=== PATIENT | male | born 1995 | race Caucasian/White ===

== ENCOUNTER 2019-05-27 22:50 | Emergency (ER) | payer OTHER ==
[2019-05-27 23:29] LABS: ABS Eosinophils 0.1 10^3/ul (0-0.6); ABS Lymphocytes 1.3 10^3/ul (1.0-4.8); ABS Monocytes 0.6 10^3/ul (0-0.8); ABS Neutrophils 10.7 10^3/ul (1.5-7.7); Eosinophil % 0.5 %; Hematocrit 47 % (42-52); Hemoglobin 15.9 g/dL (14.0-18.0); Mean Corpuscular HGB Conc 34 g/dL (31-36); Mean Corpuscular Hemoglobin 28 pg (27-31); Mean Corpuscular Volume 83 fL (80-94); Mean Platelet Volume 6.5 fL (7.4-10.4); Nucleated Red Blood Cells % 0.1; Platelet Count 203 10^3/uL (150-450); Red Cell Distribution Width 13 % (10-15); White Blood Count 12.7 10^3/uL (3.5-10.8)
[2019-05-27 23:47] LABS: Albumin 4.9 g/dL (3.2-5.2); BUN/Creatinine Ratio 12.6 (8-20); C Reactive Protein 14.1 mg/L (<8.01); Calcium 9.6 mg/dL (8.6-10.3); EGFR Non-African American 99.1 (>60); Globulin 2.5 g/dL (2-4); Potassium 3.9 mmol/L (3.5-5.0); Total Protein 7.4 g/dL (6.4-8.9)
[2019-05-28] MEDS ORDERED: Ondansetron INJ* 2 MG/ML VIAL IV ONE (00:09)
[2019-05-28] MEDS ORDERED: NS 0.9% 1000 ML** 1,000 ML IV ONE (00:09)
--- NOTE | 2019-05-28 00:11 | ED ---
GI/ HPI - HPI Summary HPI Summary: 23 yo male presents with cough and vomiting. He tells me that for the last 2 weeks he has had a dry cough. This morning he woke up with lower abdominal pain , fever, and nausea. He tried to eat, but vomited multiple times. Took tylenol and went to work. The whole day he has been nausea with mild LLQ pain and occasional RLQ pain. Upon leaving work this evening around 0, he vomited again - prompting his visit to the ED. Denies sinus symptoms, sore throat, SOB, chest pain, diarrhea, dysuria. - History of Current Complaint Chief Complaint: EDNauseaVomitDiarrh Time Seen by Provider: 05/28/19 00:08 Stated Complaint: VOMITING, COUGH PER PT Hx Obtained From: Patient Timing: Constant Severity: Mild Current Severity: Mild Pain Intensity: 4 - Allergy/Home Medications Allergies/Adverse Reactions: Allergies Allergy/AdvReac Type Severity Reaction Status Date / Time No Known Allergies Allergy Verified 05/27/19 22:58 PMH/Surg Hx/FS Hx/Imm Hx Endocrine/Hematology History: Denies: Hx Blood Disorders, Hx Diabetes Cardiovascular History: Denies: Hx Cardiac Arrest Respiratory History: Reports: Hx Asthma Denies: Hx Chronic Obstructive Pulmonary Disease (COPD) Neurological History: Denies: Hx CVA, Hx Headaches Psychiatric History: Denies: Hx Depression - Surgical History Surgical History: None - Immunization History Immunizations Up to Date: Yes Infectious Disease History: No Infectious Disease History: Denies: Traveled Outside the [place] in Last 30 Days - Family History Known Family History: Positive: None - Social History Occupation: Employed Full-time Lives: With Family Alcohol Use: Occasionally Substance Use Type: Reports: None Smoking Status (MU): Never Smoked Tobacco Review of Systems Positive: Fever Eyes: Negative ENT: Negative Cardiovascular: Negative Positive: Cough Positive: Abdominal Pain, Vomiting, Nausea Genitourinary: Negative Musculoskeletal: Negative Skin: Negative Neurological: Negative Psychological: Normal All Other Systems Reviewed And Are Negative: No Physical Exam - Summary Physical Exam Summary: GENERAL: NAD. WDWN. No pain distress. SKIN: No rashes, sores, or open wounds. HEENT: Head: AT/NC Eyes: PERRLA. EOM intact. Conjunctiva clear without inflammation or discharge. Ears: Hearing grossly normal. TMs intact, no bulging, erythema, or edema. Nose: Nasal mucosa pink and moist. NTTP maxillary and frontal sinus. Throat: Posterior oropharynx without exudates, erythema, or tonsillar enlargement. Uvula midline. NECK: Supple. Nontender. No lymphadenopathy. CHEST: CTAB. No r/r/w. No accessory muscle use. Breathing comfortably and in no distress. CV: RRR. Pulses intact. Brisk cap refill. ABDOMEN: Soft. Mild TTP LLQ and RLQ. No distention or guarding. No CVA tenderness. Bowel sounds present. Negative psoas and obturator sign. NEURO: Alert. PSYCH: Age appropriate behavior. Triage Information Reviewed: Yes Vital Signs On Initial Exam: Initial Vitals Temp Pulse Resp BP Pulse Ox 97.9 F 87 16 150/88 95 05/27/19 22:55 05/27/19 22:55 05/27/19 22:55 05/27/19 22:55 05/27/19 22:55 Vital Signs Reviewed: Yes Procedures - Sedation Patient Received Moderate/Deep Sedation with Procedure: No Diagnostics - Vital Signs Vital Signs Temp Pulse Resp BP Pulse Ox 05/27/19 22:55 97.9 F 87 16 150/88 95 - Laboratory Lab Results: Lab Results 05/27/19 05/27/19 05/27/19 Range/Units 23:23 23:23 23:23 WBC 12.7 H (3.5-10.8) 10^3/uL RBC 5.60 H (4.18-5.48) 10^6 /uL Hgb 15.9 (14.0-18.0) g/dL Hct 47 (42-52) % MCV 83 (80-94) fL MCH 28 (27-31) pg MCHC 34 (31-36) g/dL RDW 13 (10-15) % Plt Count 203 (150-450) 10^3/uL MPV 6.5 L (7.4-10.4) fL Neut % (Auto) 84.8 % Lymph % (Auto) 10.0 % Converse % (Auto) 4.4 % Eos % (Auto) 0.5 % Baso % (Auto) 0.3 % Absolute Neuts (auto) 10.7 H (1.5-7.7) 10^3/ul Absolute Lymphs (auto) 1.3 (1.0-4.8) 10^3/ul Absolute Monos (auto) 0.6 (0-0.8) 10^3/ul Absolute Eos (auto) 0.1 (0-0.6) 10^3/ul Absolute Basos (auto) 0.0 (0-0.2) 10^3/ul Absolute Nucleated RBC 0.0 10^3/ul Nucleated RBC % 0.1 Sodium 136 (135-145) mmol/L Potassium 3.9 (3.5-5.0) mmol/L Chloride 102 (101-111) mmol/L Carbon Dioxide 25 (22-32) mmol/L Anion Gap 9 (2-11) mmol/L BUN 12 (6-24) mg/dL Creatinine 0.95 (0.67-1.17) mg/dL Est GFR ( Amer) 120.0 (>60) Est GFR (Non-Af Amer) 99.1 (>60) BUN/Creatinine Ratio 12.6 (8-20) Glucose 103 H (70-100) mg/dL Lactic Acid 1.1 (0.5-2.0) mmol/L Calcium 9.6 (8.6-10.3) mg/dL Magnesium 2.0 (1.9-2.7) mg/dL Total Bilirubin 1.00 (0.2-1.0) mg/dL AST 19 (13-39) U/L ALT 32 (7-52) U/L Alkaline Phosphatase 74 (34-104) U/L C-Reactive Protein 14.10 H (<8.01) mg/L Total Protein 7.4 (6.4-8.9) g/dL Albumin 4.9 (3.2-5.2) g/dL Globulin 2.5 (2-4) g/dL Albumin/Globulin Ratio 2.0 (1-3) Lipase 13 (11.0-82.0) U/L Result Diagrams: 05/27/19 23:23 05/27/19 23:23 Lab Statement: Any lab studies that have been ordered have been reviewed, and results considered in the medical decision making process. - Radiology CXR Radiology Interpretation Completed By: ED Physician - CT abd/pelv CT Interpretation Completed By: Radiologist GIGU Course/Dx - Course Course Of Treatment: Suspect viral illness, but given his subjective fever and abdominal pain with slight leukocytosis will order for CT a/p. Pt is agreeable to this. Given NS and zofran for his symptoms. Will sign out to Dr. Patel pending CT results. - Diagnoses Provider Diagnoses: Lower abdominal pain, Cough Discharge ED - Sign-Out/Discharge Documenting (check all that apply): Sign-Out Patient Signing out patient TO: Teresa Patel - Discharge Plan Condition: Stable Referrals: No Primary Care Phys,NOPCP [Primary Care Provider] - - Billing Disposition and Condition Condition: STABLE
[2019-05-28] MEDS ORDERED: Iohexol 300* (CONTRAST) 10 ML SDV IV ONE (00:33)
--- NOTE | 2019-05-28 03:07 | ED ---
Progress - Progress Note Progress Note: This patient is signed out from Yung MCKEON upon shift change on 05/28/19 02 :[address] and pending disposition. CT Abd/Pel shows, per radiologist: No CT findings to correlate with patient's symptomatology. Specifically no appendicitis. ED physician has reviewed this report. Course/Dx - Diagnoses Provider Diagnoses: Viral illness Discharge ED - Sign-Out/Discharge Documenting (check all that apply): Patient Departure - Discharge - Discharge Plan Condition: Stable Disposition: HOME Patient Education Materials: Viral Syndrome (ED) Referrals: [facility] [Outside] - 3 Days Additional Instructions: Please follow up with [facility] within 3 days. Please return to Emergency Department for any new or worsening symptoms. - Billing Disposition and Condition Condition: STABLE Disposition: Home - Attestation Statements Document Initiated by Alhajiibe: Yes Documenting Scribe: Annamaria Edwards Provider For Whom Scribe is Documenting (Include Credential): Teresa Patel MD Scribe Attestation: IAnnamaria, scribed for Teresa Patel MD on 05/28/19 at 0449. Scribe Documentation Reviewed: Yes Provider Attestation: The documentation as recorded by the Annamaria lal accurately reflects the service I personally performed and the decisions made by me, Teresa Patel MD Status of Scribe Document: Viewed
[2019-05-28 03:22] LABS: Urine Appearance Clear; Urine Bilirubin Negative (Negative); Urine Blood Negative (Negative); Urine Color Yellow; Urine Glucose Negative (Negative); Urine Ketones Negative (Negative); Urine Nitrite Negative (Negative); Urine Protein Negative (Negative); Urine Specific Gravity 1.054 (1.010-1.030); Urine Urobilinogen Negative (Negative)
[2019-05-28 04:17] VITALS: BP 127/69
== END 2019-05-28 04:17 | disposition home or self-care (01) ==
LOC: ED 22:50
DX: B34.9 Viral infection, unspecified (principal); R10.32 Left lower quadrant pain; R10.31 Right lower quadrant pain; R05 Cough; D72.829 Elevated white blood cell count, unspecified
CPT/HCPCS: 36415; 71046; 74177; 80053; 81003; 83605; 83690; 83735; 85025; 86140; 96361; 96374; 99284; J2405; Q9967

== ENCOUNTER 2019-09-29 17:03 | Emergency (ER) | payer OTHER ==
--- NOTE | 2019-09-29 19:03 | ED ---
Skin Complaint - HPI Summary HPI Summary: 23-year-old male presents with lesions a right-sided neck. he states it started as a small bump and got bigger. yesterday he popped it and got some drainage. He is concerned that has MRSA but denies any history of this. He has never had this before. Has no medical conditions. He denies any fevers or chills. No spreading redness. - History of Current Complaint Chief Complaint: EDRashSkinAbscess Time Seen by Provider: 09/29/19 17:47 Stated Complaint: ABCESS Pain Intensity: 2 - Allergy/Home Medications Allergies/Adverse Reactions: Allergies Allergy/AdvReac Type Severity Reaction Status Date / Time No Known Allergies Allergy Verified 09/29/19 17:16 Home Medications: Home Medications DOXYcycline CAP(*) [DOXYcycline 100MG CAP(*)] 100 mg PO BID #19 cap 09/29/19 [Rx ] PMH/Surg Hx/FS Hx/Imm Hx Endocrine/Hematology History: Denies: Hx Blood Disorders, Hx Diabetes Cardiovascular History: Denies: Hx Cardiac Arrest Respiratory History: Reports: Hx Asthma Denies: Hx Chronic Obstructive Pulmonary Disease (COPD) Neurological History: Denies: Hx CVA, Hx Headaches Psychiatric History: Denies: Hx Depression Infectious Disease History: No Infectious Disease History: Denies: Traveled Outside the [place] in Last 30 Days - Family History Known Family History: Positive: None - Social History Alcohol Use: Occasionally Substance Use Type: Reports: Marijuana Substance Use Comment - Amount & Last Used: 2x per week Smoking Status (MU): Never Smoked Tobacco Review of Systems Negative: Fever Negative: Chest Pain Negative: Shortness Of Breath Positive: Rash All Other Systems Reviewed And Are Negative: Yes Physical Exam Triage Information Reviewed: Yes Vital Signs On Initial Exam: Initial Vitals Temp Pulse Resp BP Pulse Ox 99.1 F 86 16 132/86 97 09/29/19 17:13 09/29/19 17:13 09/29/19 17:13 09/29/19 17:13 09/29/19 17:13 Vital Signs Reviewed: Yes Appearance: Positive: Well-Appearing Skin: Positive: Warm, Dry, Other - 3vm by 2cm area of induration and erythema to right side of neck with scabbed area, no loculation felt Head/Face: Positive: Normal Head/Face Inspection Eyes: Positive: Normal, Conjunctiva Clear ENT: Positive: Pharynx normal Neck: Positive: Nontender, No Lymphadenopathy Respiratory/Lung Sounds: Positive: Clear to Auscultation, Breath Sounds Present Cardiovascular: Positive: Normal, RRR Musculoskeletal: Positive: Normal Neurological: Positive: Normal Psychiatric: Positive: Normal Procedures - Sedation Patient Received Moderate/Deep Sedation with Procedure: No - Incision and Drainage neck Site: right side neck Instrument(s): Needle Diagnostics - Vital Signs Vital Signs Temp Pulse Resp BP Pulse Ox 09/29/19 17:13 99.1 F 86 16 132/86 97 - Laboratory Lab Statement: Any lab studies that have been ordered have been reviewed, and results considered in the medical decision making process. Course/Dx - Course Course Of Treatment: 23-year-old male presents with lesions a right-sided neck. he states it started as a small bump and got bigger. yesterday he popped it and got some drainage. He is concerned that has MRSA but denies any history of this. He has never had this before. Has no medical conditions. He denies any fevers or chills. No spreading redness. On exam has area of erythema and induration noted to right side of neck. Area has a scabbed area present. Attempts I&D of area and did not get anything. We'll place on doxycycline. warned of signs to return to ER for. Patient understands and agrees with plan. - Differential Diagnoses - Skin Complaint Differential Diagnoses: Abscess, Cellulitis, Contact Dermatitis - Diagnoses Provider Diagnoses: Abscess Discharge ED - Sign-Out/Discharge Documenting (check all that apply): Patient Departure - Discharge Plan Condition: Good Disposition: HOME Prescriptions: DOXYcycline CAP(*) [DOXYcycline 100MG CAP(*)] 100 mg PO BID #19 cap Patient Education Materials: Abscess (ED) Referrals: [facility] [Outside] Additional Instructions: Take antibiotic twice a day for 10 days, first dose given in ED Apply warm compresses to area Take ibuprofen or Tylenol for pain every 6 hours establish care with primary Return to ED if develop fever, area of redness spreads, or any new or worsening symptoms - Billing Disposition and Condition Condition: GOOD Disposition: Home
[2019-09-29] MEDS ORDERED: DOXYcycline CAP(*) 100 MG PO ONE (19:04)
[2019-09-29 19:19] VITALS: BP 132/83
== END 2019-09-29 19:16 | disposition home or self-care (01) ==
LOC: ED 17:03
DX: L02.11 Cutaneous abscess of neck (principal)
CPT/HCPCS: 10060; 87070; 87077; 87186; 87205; 87640; 87641; 99282; A9270-GY